=== PATIENT | female | born 1990 | race Caucasian/White ===

== ENCOUNTER 2018-06-10 18:43 | Emergency (ER) | payer BC ==
[2018-06-10] MEDS ORDERED: Ondansetron 4 MG/2 ML SDV IVPUSH ONE (19:00)
[2018-06-10] MEDS ORDERED: Sodium Chloride 0.9% 1,000 ML IV ONE (19:00)
--- NOTE | 2018-06-10 19:05 | EDM.PDOC ---
ED HPI GENERAL MEDICAL PROBLEM - General Chief Complaint: Gastrointestinal Problem Stated Complaint: PT VOMITING Time Seen by Provider: 06/10/18 18:57 - History of Present Illness INITIAL COMMENTS - FREE TEXT/NARRATIVE: HISTORY AND PHYSICAL: History of present illness: Patient's 20-year-old female presents with concern of vomiting since 11 AM she' s had no fever no chills she denies abdominal pain there's been no diarrhea she was recently screened for celiac disease which was negative she has had a prior cholecystectomy. Review of systems: As per history of present illness and below otherwise all systems reviewed and negative. Past medical history: As per history of present illness and as reviewed below otherwise noncontributory. Surgical history: As per history of present illness and as reviewed below otherwise noncontributory. Social history: No reported history of drug or alcohol abuse. Family history: As per history of present illness and as reviewed below otherwise noncontributory. Physical exam: HEENT: Atraumatic, normocephalic, pupils reactive, negative for conjunctival pallor or scleral icterus, mucous membranes dry, throat clear, neck supple, nontender, trachea midline. Lungs: Clear to auscultation, breath sounds equal bilaterally, chest nontender. Heart: S1S2, regular, negative for clicks, rubs, or JVD. Abdomen: Soft, nondistended, nontender. Negative for masses or hepatosplenomegaly. Negative for costovertebral tenderness. Pelvis: Stable nontender. Genitourinary: Deferred. Rectal: Deferred. Extremities: Atraumatic, negative for cords or calf pain. Neurovascular unremarkable. Neuro: Awake, alert, oriented. Cranial nerves II through XII unremarkable. Cerebellum unremarkable. Motor and sensory unremarkable throughout. Exam nonfocal. Diagnostics: CBC CMP lipase UA hCG Therapeutics: Saline 1 L bolus Zofran 4 mg IV Impression: #1 vomiting #2 dehydration Definitive disposition and diagnosis as appropriate pending reevaluation and review of above. - Related Data Allergies Allergy/AdvReac Type Severity Reaction Status Date / Time morphine Allergy Nausea and Verified 10/27/17 09:04 Vomiting Home Meds: Home Meds lamoTRIgine 300 mg PO DAILY 10/07/16 [History] Escitalopram Oxalate [Lexapro] 30 mg PO DAILY 10/27/17 [History] cloNIDine HCl [Catapres] 0.3 mg PO BID 10/27/17 [History] Past Medical History Respiratory History: Reports: Other (See Below) Other Respiratory History: sleep apnea in the past, states no longer has after weight loss Gastrointestinal History: Reports: Chronic Constipation Musculoskeletal History: Reports: Other (See Below) Other Musculoskeletal History: sam foot surgery for torn ligaments Neurological History: Reports: Migraines Psychiatric History: Reports: Anxiety, Bipolar, Depression, Suicide Attempt Endocrine/Metabolic History: Reports: Obesity/BMI 30+ Hematologic History: Reports: Anemia - Infectious Disease History Infectious Disease History: Reports: Chicken Pox, Other (See Below) Other Infectious Disease History: 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 ED EXAM, GENERAL - Physical Exam Exam: See Below (See dictation) Course - Vital Signs Last Recorded V/S: Last Vital Signs Temp 36.6 C 06/10/18 19:00 Pulse 99 06/10/18 19:00 Resp 16 06/10/18 19:00 BP 132/79 06/10/18 19:00 Pulse Ox 97 06/10/18 19:00 - Orders/Labs/Meds Orders: Active Orders 24 hr Category Date Time Status UA W/MICROSCOPIC [URIN] Stat Lab 06/10/18 19:44 Ordered Labs: Laboratory Tests 06/10/18 06/10/18 06/10/18 Range/Units 19:05 19:05 19:05 WBC 5.68 (4.0-11.0) K/uL RBC 4.50 (4.30-5.90) M/uL Hgb 10.5 L (12.0-16.0) g/dL Hct 34.2 L (36.0-46.0) % MCV 76.0 L (80.0-98.0) fL MCH 23.3 L (27.0-32.0) pg MCHC 30.7 L (31.0-37.0) g/dL RDW Std Deviation 42.0 (28.0-62.0) fl RDW Coeff of Katherine 15 (11.0-15.0) % Plt Count 327 (150-400) K/uL MPV 9.60 (7.40-12.00) fL Neut % (Auto) 64.1 (48.0-80.0) % Lymph % (Auto) 28.0 (16.0-40.0) % [place] % (Auto) 6.5 (0.0-15.0) % Eos % (Auto) 1.2 (0.0-7.0) % Baso % (Auto) 0.2 (0.0-1.5) % Neut # (Auto) 3.6 (1.4-5.7) K/uL Lymph # (Auto) 1.6 (0.6-2.4) K/uL [place] # (Auto) 0.4 (0.0-0.8) K/uL Eos # (Auto) 0.1 (0.0-0.7) K/uL Baso # (Auto) 0.0 (0.0-0.1) K/uL Nucleated RBC % 0.0 /100WBC Nucleated RBCs # 0 K/uL Sodium 141 (136-145) mmol/L Potassium 3.3 L (3.5-5.1) mmol/L Chloride 107 (98-107) mmol/L Carbon Dioxide 26.9 (21.0-32.0) mmol/L BUN 10 (7.0-18.0) mg/dL Creatinine 0.9 (0.6-1.0) mg/dL Est Cr Clr Drug Dosing 80.36 mL/min Estimated GFR (MDRD) > 60.0 ml/min Glucose 136 H (74-106) mg/dL Calcium 8.9 (8.5-10.1) mg/dL Total Bilirubin 0.1 L (0.2-1.0) mg/dL AST 17 (15-37) IU/L ALT 16 (14-63) IU/L Alkaline Phosphatase 67 (46-116) U/L Total Protein 6.9 (6.4-8.2) g/dL Albumin 3.4 (3.4-5.0) g/dL Globulin 3.5 (2.0-3.5) g/dL Albumin/Globulin Ratio 1.0 L (1.3-2.8) Lipase 152 (73-393) U/L HCG, Qual NEGATIVE (NEG) Urine Color Urine Appearance Urine pH (5.0-8.0) Ur Specific [place] (1.001-1.035) Urine Protein (NEGATIVE) mg/dL Urine Glucose (UA) (NEGATIVE) mg/dL Urine Ketones (NEGATIVE) mg/dL Urine Occult Blood (NEGATIVE) Urine Nitrite (NEGATIVE) Urine Bilirubin (NEGATIVE) Urine Urobilinogen (<2.0) EU/dL Ur Leukocyte Esterase (NEGATIVE) Urine RBC (0-2/HPF) Urine WBC (0-5/HPF) Ur Epithelial Cells (NONE-FEW) Urine Bacteria (NEGATIVE) 06/10/18 Range/Units 19:44 WBC (4.0-11.0) K/uL RBC (4.30-5.90) M/uL Hgb (12.0-16.0) g/dL Hct (36.0-46.0) % MCV (80.0-98.0) fL MCH (27.0-32.0) pg MCHC (31.0-37.0) g/dL RDW Std Deviation (28.0-62.0) fl RDW Coeff of Katherine (11.0-15.0) % Plt Count (150-400) K/uL MPV (7.40-12.00) fL Neut % (Auto) (48.0-80.0) % Lymph % (Auto) (16.0-40.0) % [place] % (Auto) (0.0-15.0) % Eos % (Auto) (0.0-7.0) % Baso % (Auto) (0.0-1.5) % Neut # (Auto) (1.4-5.7) K/uL Lymph # (Auto) (0.6-2.4) K/uL [place] # (Auto) (0.0-0.8) K/uL Eos # (Auto) (0.0-0.7) K/uL Baso # (Auto) (0.0-0.1) K/uL Nucleated RBC % /100WBC Nucleated RBCs # K/uL Sodium (136-145) mmol/L Potassium (3.5-5.1) mmol/L Chloride (98-107) mmol/L Carbon Dioxide (21.0-32.0) mmol/L BUN (7.0-18.0) mg/dL Creatinine (0.6-1.0) mg/dL Est Cr Clr Drug Dosing mL/min Estimated GFR (MDRD) ml/min Glucose (74-106) mg/dL Calcium (8.5-10.1) mg/dL Total Bilirubin (0.2-1.0) mg/dL AST (15-37) IU/L ALT (14-63) IU/L Alkaline Phosphatase (46-116) U/L Total Protein (6.4-8.2) g/dL Albumin (3.4-5.0) g/dL Globulin (2.0-3.5) g/dL Albumin/Globulin Ratio (1.3-2.8) Lipase (73-393) U/L HCG, Qual (NEG) Urine Color YELLOW Urine Appearance HAZY Urine pH 5.5 (5.0-8.0) Ur Specific [place] 1.025 (1.001-1.035) Urine Protein NEGATIVE (NEGATIVE) mg/dL Urine Glucose (UA) NEGATIVE (NEGATIVE) mg/dL Urine Ketones NEGATIVE (NEGATIVE) mg/dL Urine Occult Blood LARGE H (NEGATIVE) Urine Nitrite NEGATIVE (NEGATIVE) Urine Bilirubin NEGATIVE (NEGATIVE) Urine Urobilinogen 0.2 (<2.0) EU/dL Ur Leukocyte Esterase NEGATIVE (NEGATIVE) Urine RBC 15-20 (0-2/HPF) Urine WBC 0-2 (0-5/HPF) Ur Epithelial Cells OCCASIONAL (NONE-FEW) Urine Bacteria FEW (NEGATIVE) Meds: Medications Discontinued Medications Generic Name Dose Route Start Last Admin Trade Name Freq PRN Reason Stop Dose Admin Sodium Chloride 1,000 mls @ 999 mls/hr 06/10/18 19:00 06/10/18 19:10 Normal Saline IV 06/10/18 20:00 999 mls/hr STAT ONE Administration Ketorolac Tromethamine 30 mg 06/10/18 19:36 06/10/18 19:45 Toradol IVPUSH 06/10/18 19:37 30 mg ONETIME ONE Administration Ondansetron HCl 4 mg 06/10/18 19:00 06/10/18 19:10 Zofran IVPUSH 06/10/18 19:01 4 mg ONETIME ONE Administration Departure - Departure Time of Disposition: 20:28 Disposition: Home, Self-Care 01 Condition: Good Clinical Impression: Vomiting, Dehydration - Discharge Information *PRESCRIPTION DRUG MONITORING PROGRAM REVIEWED*: Not Applicable *COPY OF PRESCRIPTION DRUG MONITORING REPORT IN PATIENT RADHA: Not Applicable Referrals: PCP,None [Primary Care Provider] - Forms: ED Department Discharge Additional Instructions: The following information is given to patients seen in the emergency department who are being discharged to home. This information is to outline your options for follow-up care. We provide all patients seen in our emergency department with a follow-up referral. The need for follow-up, as well as the timing and circumstances, are variable depending upon the specifics of your emergency department visit. If you don't have a primary care physician on staff, we will provide you with a referral. We always advise you to contact your personal physician following an emergency department visit to inform them of the circumstance of the visit and for follow-up with them and/or the need for any referrals to a consulting specialist. The emergency department will also refer you to a specialist when appropriate. This referral assures that you have the opportunity for followup care with a specialist. All of these measure are taken in an effort to provide you with optimal care, which includes your followup. Under all circumstances we always encourage you to contact your private physician who remains a resource for coordinating your care. When calling for followup care, please make the office aware that this follow-up is from your recent emergency room visit. If for any reason you are refused follow-up, please contact the [facility] emergency department at and asked to speak to the emergency department charge nurse. Zofran as prescribed clear liquids as directed push fluids follow-up private medical doctor as needed as discussed and return as needed as discussed - My Orders Last 24 Hours: My Active Orders 06/10/18 19:44 UA W/MICROSCOPIC [URIN] Stat - Assessment/Plan Last 24 Hours: My Active Orders 06/10/18 19:44 UA W/MICROSCOPIC [URIN] Stat
[2018-06-10] MEDS ORDERED: Ketorolac 30 MG/ML SDV IVPUSH ONE (19:36)
[2018-06-10 19:39] LABS: CHLORIDE,CL 107 mmol/L (98-107); SODIUM,NA 141 mmol/L (136-145)
== END 2018-06-10 20:37 | disposition home or self-care (01) ==
LOC: MW.ED 18:43
DX: E86.0 Dehydration (principal); R11.10 Vomiting, unspecified; E66.9 Obesity, unspecified; Z88.5 Allergy status to narcotic agent
CPT/HCPCS: 36415; 80053; 81001; 83690; 84703; 85025; 96361; 96374; 96375; 99283; J1885; J2405; J7040

== ENCOUNTER 2018-11-12 09:46 | Emergency (ER) | payer BC ==
[2018-11-12] MEDS ORDERED: Ondansetron 4 MG/2 ML SDV IVPUSH ONE (10:09)
[2018-11-12] MEDS ORDERED: diphenhydrAMINE 50 MG/ML SDV IVPUSH ONE (10:09)
[2018-11-12] MEDS ORDERED: Metoclopramide 10 MG/2 ML SDV IV ONE (10:09)
[2018-11-12] MEDS ORDERED: Sodium Chloride 0.9% 1,000 ML IV ONE (10:09)
[2018-11-12] MEDS ORDERED: Ketorolac 30 MG/ML SDV IVPUSH ONE (10:09)
--- NOTE | 2018-11-12 10:11 | EDM.PDOC ---
ED HPI GENERAL MEDICAL PROBLEM - General Chief Complaint: Headache Stated Complaint: NECK PAIN Time Seen by Provider: 11/12/18 10:03 - History of Present Illness INITIAL COMMENTS - FREE TEXT/NARRATIVE: HISTORY AND PHYSICAL: History of present illness: Patient's 28-year-old white female with history of bipolar disorder who presents with conservative headache and neck pain patient describes intermittent episodes in the past with visual disturbance and anesthesia related to headache she has family history of migraine she does not have a personal diagnosis of migraine headache she denies any trauma fever chills or other concern today to slightly improved she had 2 episodes in last 24 hours including today's. She denies hormone therapy. Review of systems: As per history of present illness and below otherwise all systems reviewed and negative. Past medical history: As per history of present illness and as reviewed below otherwise noncontributory. Surgical history: As per history of present illness and as reviewed below otherwise noncontributory. Social history: No reported history of drug or alcohol abuse. Family history: As per history of present illness and as reviewed below otherwise noncontributory. Physical exam: HEENT: Atraumatic, normocephalic, pupils reactive, negative for conjunctival pallor or scleral icterus, mucous membranes moist, throat clear, neck supple, nontender, trachea midline. Lungs: Clear to auscultation, breath sounds equal bilaterally, chest nontender. Heart: S1S2, regular, negative for clicks, rubs, or JVD. Abdomen: Soft, nondistended, nontender. Negative for masses or hepatosplenomegaly. Negative for costovertebral tenderness. Pelvis: Stable nontender. Genitourinary: Deferred. Rectal: Deferred. Extremities: Atraumatic, negative for cords or calf pain. Neurovascular unremarkable. Neuro: Awake, alert, oriented. Cranial nerves II through XII unremarkable. Cerebellum unremarkable. Motor and sensory unremarkable throughout. Exam nonfocal. Diagnostics: CT brain Therapeutics: Saline 1 L bolus Toradol 30 mg IV Zofran 4 mg IV Reglan 10 mg IV Benadryl 50 mrem IV Impression: #1 cephalgia #2 rule out migraine headache #3 medical screening exam Definitive disposition and diagnosis as appropriate pending reevaluation and review of above. Headache Pain Score (Numeric/FACES): 7 - Related Data Allergies Allergy/AdvReac Type Severity Reaction Status Date / Time morphine Allergy Nausea and Verified 11/12/18 10:04 Vomiting Home Meds: Home Meds lamoTRIgine 300 mg PO DAILY 10/07/16 [History] Escitalopram Oxalate [Lexapro] 30 mg PO DAILY 10/27/17 [History] cloNIDine HCl [Catapres] 0.3 mg PO BID 10/27/17 [History] Past Medical History Respiratory History: Reports: Other (See Below) Other Respiratory History: sleep apnea in the past, states no longer has after weight loss Gastrointestinal History: Reports: Chronic Constipation Musculoskeletal History: Reports: Other (See Below) Other Musculoskeletal History: sam foot surgery for torn ligaments Neurological History: Reports: Migraines Psychiatric History: Reports: Anxiety, Bipolar, Depression, Suicide Attempt Endocrine/Metabolic History: Reports: Obesity/BMI 30+ Hematologic History: Reports: Anemia - Infectious Disease History Infectious Disease History: Reports: Chicken Pox, Other (See Below) Other Infectious Disease History: 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 - Past Surgical History Head Surgeries/Procedures: Reports: None GI Surgical History: Reports: Bariatric Procedure, Cholecystectomy Musculoskeletal Surgical History: Reports: Other (See Below) Other Musculoskeletal Surgeries/Procedures:: ankle surgeries Social & Family History - Family History Family Medical History: Noncontributory - Tobacco Use Smoking Status *Q: Never Smoker - Caffeine Use Caffeine Use: Reports: Coffee, Energy Drinks Caffeine Use Comment: occasional - Recreational Drug Use Recreational Drug Use: No ED ROS GENERAL - Review of Systems Review Of Systems: ROS reveals no pertinent complaints other than HPI. ED EXAM, GENERAL - Physical Exam Exam: See Below (See dictation) Course - Vital Signs Last Recorded V/S: Last Vital Signs Temp 36.1 C 11/12/18 10:00 Pulse 63 11/12/18 10:53 Resp 15 11/12/18 10:53 BP 115/61 11/12/18 10:53 Pulse Ox 95 11/12/18 10:53 - Orders/Labs/Meds Orders: Active Orders 24 hr Category Date Time Status Head wo Cont [CT] Stat Exams 11/12/18 10:09 Taken Sodium Chloride 0.9% [Normal Saline] 1,000 ml Med 11/12/18 10:09 Active IV STAT Medication Orders Sodium Chloride (Normal Saline) 1,000 mls @ 999 mls/hr IV STAT ONE Stop: 11/12/18 11:09 Last Admin: 11/12/18 10:30 Dose: 999 mls/hr Meds: Medications Generic Name Dose Route Start Last Admin Trade Name Freq PRN Reason Stop Dose Admin Sodium Chloride 1,000 mls @ 999 mls/hr 11/12/18 10:09 11/12/18 10:30 Normal Saline IV 11/12/18 11:09 999 mls/hr STAT ONE Administration Discontinued Medications Generic Name Dose Route Start Last Admin Trade Name Freq PRN Reason Stop Dose Admin Diphenhydramine HCl 50 mg 11/12/18 10:09 11/12/18 10:31 Benadryl IVPUSH 11/12/18 10:10 50 mg ONETIME ONE Administration Ketorolac Tromethamine 30 mg 11/12/18 10:09 11/12/18 10:30 Toradol IVPUSH 11/12/18 10:10 30 mg ONETIME ONE Administration Metoclopramide HCl 10 mg 11/12/18 10:09 11/12/18 10:31 Reglan IV 11/12/18 10:10 10 mg ONETIME ONE Administration Ondansetron HCl 4 mg 11/12/18 10:09 11/12/18 10:30 Zofran IVPUSH 11/12/18 10:10 4 mg ONETIME ONE Administration Departure - Departure Time of Disposition: 11:00 Disposition: Home, Self-Care 01 Condition: Good Clinical Impression: Cephalgia, Paresthesia - Discharge Information Referrals: Jill Gutierrez HAND OR MACHINE PASTER [Primary Care Provider] - Forms: ED Department Discharge Additional Instructions: The following information is given to patients seen in the emergency department who are being discharged to home. This information is to outline your options for follow-up care. We provide all patients seen in our emergency department with a follow-up referral. The need for follow-up, as well as the timing and circumstances, are variable depending upon the specifics of your emergency department visit. If you don't have a primary care physician on staff, we will provide you with a referral. We always advise you to contact your personal physician following an emergency department visit to inform them of the circumstance of the visit and for follow-up with them and/or the need for any referrals to a consulting specialist. The emergency department will also refer you to a specialist when appropriate. This referral assures that you have the opportunity for followup care with a specialist. All of these measure are taken in an effort to provide you with optimal care, which includes your followup. Under all circumstances we always encourage you to contact your private physician who remains a resource for coordinating your care. When calling for followup care, please make the office aware that this follow-up is from your recent emergency room visit. If for any reason you are refused follow-up, please contact the [facility] emergency department at and asked to speak to the emergency department charge nurse. [facility] - Neurology Professional Building [address] [place] [address], [address] [place] [address] Follow-up neurology/private medical doctor call to schedule appointment return as needed as discussed - My Orders Last 24 Hours: My Active Orders 11/12/18 10:09 Head wo Cont [CT] Stat Sodium Chloride 0.9% [Normal Saline] 1,000 ml IV STAT - Assessment/Plan Last 24 Hours: My Active Orders 11/12/18 10:09 Head wo Cont [CT] Stat Sodium Chloride 0.9% [Normal Saline] 1,000 ml IV STAT
--- NOTE | 2018-11-12 11:06 | CT ---
Indication: Patient states when she turns her head a certain weight feels like a popping in her right lower rectal region and she loses her vision for about 10 seconds with severe pain. Technique: Multiple contiguous axial images were obtained from the skullbase to the vertex without intravenous contrast enhancement. Please note that all CT scans at this facility use dose modulation, iterative reconstruction, and/or weight-based dosing when appropriate to reduce radiation dose to as low as reasonably achievable. Comparison: None Findings: The ventricles are symmetric and normal in size and morphology. The basal cisterns are widely patent. No intra-axial or extra-axial hemorrhage is identified. No mass, mass effect or midline shift is seen. The bony calvarium is intact. The visualized paranasal sinuses and mastoid air cells are clear. Impression: No acute intracranial process. Consideration should be given to either CTA of the head/neck versus an MRI/MRA of the neck/head for further evaluation of the patient`s clinical symptoms. Please note that all CT scans at this facility use dose modulation, iterative reconstruction, and/or weight-based dosing when appropriate to reduce radiation dose to as low as reasonably achievable. Dictated by Margo Garcia MD @ Nov 12 2018 11:04AM Signed by Dr. Margo Garcia @ Nov 12 2018 11:06AM
== END 2018-11-12 11:25 | disposition home or self-care (01) ==
LOC: MW.ED 09:46
DX: R51 Headache (principal); R20.2 Paresthesia of skin; F41.9 Anxiety disorder, unspecified; F31.9 Bipolar disorder, unspecified; Z88.5 Allergy status to narcotic agent; Z79.899 Other long term (current) drug therapy
CPT/HCPCS: 70450; 96361; 96374; 96375; 99283; J1200; J1885; J2405; J2765; J7040; 99282